=== PATIENT | female | born 1985 | race Caucasian/White ===

== ENCOUNTER 2022-04-13 18:09 | Emergency (ER) | payer OTHER, MEDICAID, SELFPAY ==
--- NOTE | 2022-04-13 18:14 | ED.FEMALEGU ---
HPI - Female Genitourinary General Chief complaint: Urogenital-Female Stated complaint: Urinary Problem Time Seen by Provider: 04/13/22 18:14 Source: patient and RN notes reviewed History of Present Illness HPI Narrative: Patient is a 36-year-old female who presents the urgent care with complaints of a possible UTI due to urinary frequency and left flank pain. Patient states that it started last night and she did have a fever. Patient has a history of kidney stones, urinary stones, UTIs and multiple bladder surgeries. Patient states that she has been taking Tylenol for the pain. Denies of any nausea or vomiting. Patient appears anxious and tearful. No other acute complaints. No acute distress noted. Patient aware of the plan of care. Some parts of this dictation were generated by voice recognition software and may contain typographical and/or grammatical inaccuracies. Related Data Home Medications Medication Instructions Recorded Confirmed albuterol sulfate 90 mcg/actuation 2 inh inhalation Q4H PRN Shortness 04/13/22 04/13/22 breath activated powder inhaler Of Breath omeprazole 40 mg capsule,delayed 40 mg PO DAILY 04/13/22 04/13/22 release sucralfate 1 gram tablet (Carafate) 1 g PO DAILY 04/13/22 04/13/22 Allergies Allergy/AdvReac Type Severity Reaction Status Date / Time No Known Allergies Allergy Unknown Unverified 03/19/19 15:26 Review of Systems Review of Systems: CONSTITUTIONAL: Denies fever, chills, or sweats. EYES: Denies visual changes, redness, or discharge. ENT: Denies rhinorrhea, congestion, sore throat, or otalgia. CARDIOVASCULAR: Denies chest pain, palpitations, or edema. RESPIRATORY: Denies cough or dyspnea. GASTROINTESTINAL: Denies abdominal pain, nausea, vomiting, or diarrhea. GENITOURINARY: Reports of urinary frequency and left flank pain SKIN: Denies rash or itching. MUSCULOSKELETAL: Denies back pain, joint pain, or myalgia. NEUROLOGIC: Denies headache, numbness, or weakness. All other systems reviewed are negative, except as documented in HPI. PMFSH Comments At the time of my signature, I reviewed and agree with the nursing past medical, surgical, social, and family history. There is no relevant family history pertinent to the patient complaint. Exam Narrative: GENERAL: This is a well-nourished, well-developed patient. Tearful HEAD: normocephalic, atraumatic. EYES: PERRL. Sclera clear/white. Vision is grossly intact. EARS: External ears normal NOSE: External nose normal with no obvious nasal discharge, nares without redness, no rhinorrhea. THROAT: Mucous membranes moist NECK: Neck supple CARDIOVASCULAR: Regular rate and rhythm without murmurs, gallops, or rubs. RESPIRATORY: Clear to auscultation. Breath sounds equal bilaterally. No wheezes, rales, or rhonchi. GASTROINTESTINAL: Abdomen soft, non-tender, nondistended. Bowel sounds are active. SKIN: warm, intact with no suspicious lesions or rash, good texture and turgor. NEURO: awake, alert, and oriented to person, place and time. There were no obvious focal neurologic abnormalities. BACK: Left CVA tenderness Course Course Level of Care: Express Care Visit Vital Signs Vital signs: Vital Signs Temperature 98.1 F 04/13/22 18:35 Pulse Rate 84 04/13/22 18:35 Respiratory Rate 20 04/13/22 18:35 Blood Pressure 146/86 H 04/13/22 18:35 Pulse Oximetry 100 04/13/22 18:35 Oxygen Delivery Room Air 04/13/22 18:35 Temperature 98.1 F 04/13/22 18:35 Pulse Rate 84 04/13/22 18:35 Respiratory Rate 20 04/13/22 18:35 Blood Pressure 146/86 H 04/13/22 18:35 Pulse Oximetry 100 04/13/22 18:35 Oxygen Delivery Room Air 04/13/22 18:35 Reviewed-patient is informed that they may have pre-hypertension or hypertension based on a blood pressure reading in the department. I recommend the patient call the primary care provider listed on their discharge instructions or a physician of their choice this week to arrange
[2022-04-13 18:35] VITALS: BP 146/86; PULSE 84; RESP 20; TEMP 36.7; O2SAT 100
== END 2022-04-13 18:55 | disposition home or self-care (01) ==
PROVIDERS: Emergency Provider Nurse Practitioner Family
DX: R10.9 Unspecified abdominal pain (principal)
CPT/HCPCS: 81003; 87086; 99203; G0463

== ENCOUNTER 2022-07-20 17:09 | Emergency (ER) | payer MEDICAID, SELFPAY ==
[2022-07-20 17:13] VITALS: BP 143/80; PULSE 74; RESP 15; TEMP 36.1; O2SAT 100
--- NOTE | 2022-07-20 17:32 | ED.DENTAL ---
HPI - Dental/Oral General Chief complaint: Dental/Oral Stated complaint: dental pain Time Seen by Provider: 07/20/22 17:21 History of Present Illness HPI Narrative: 37-year-old female presents to the emergency room for evaluation of left lower molar dental pain since last night. Patient states that she has noticed a bubble on her left lower gingiva that has been present for a week. Patient states she noticed a bubble break last night and has been experiencing pain ever since. Has been using topical lidocaine with no relief of symptoms. States has a dental appointment scheduled for next Wednesday. Related Data Home Medications Medication Instructions Recorded Confirmed albuterol sulfate 90 mcg/actuation 2 inh inhalation Q4H PRN Shortness 04/13/22 04/13/22 breath activated powder inhaler Of Breath omeprazole 40 mg capsule,delayed 40 mg PO DAILY 04/13/22 04/13/22 release sucralfate 1 gram tablet (Carafate) 1 g PO DAILY 04/13/22 04/13/22 Allergies Allergy/AdvReac Type Severity Reaction Status Date / Time No Known Allergies Allergy Unknown Unverified 03/19/19 15:26 Review of Systems Review of Systems: CONSTITUTIONAL: Denies fever, chills, or sweats. EYES: Denies visual changes, redness, or discharge. ENT: Reports dental pain CARDIOVASCULAR: Denies chest pain, palpitations, or edema. RESPIRATORY: Denies cough or dyspnea. GASTROINTESTINAL: Denies abdominal pain, nausea, vomiting, or diarrhea. GENITOURINARY: Denies dysuria or hematuria. SKIN: Denies rash or itching. MUSCULOSKELETAL: Denies back pain, joint pain, or myalgia. NEUROLOGIC: Denies headache, numbness, dizziness, or weakness. PSYCHIATRIC: Denies anxiety or depression. Exam Narrative: GENERAL: Well-appearing, well-nourished, no physical limitations, and in no acute distress. HEAD: Normocephalic, atraumatic. EYES: Conjunctivae normal, PERRLA and EOMI. ENT: Erythema and soft tissue swelling to the left buccal mucosa. No noticeable abscess. No dental pain. NECK: Supple. No meningeal signs. No adenopathy or masses. No carotid bruits or JVD CHEST: Clear to auscultation. No respiratory distress. No wheezes rales or rhonchi. No tenderness. HEART: Regular rate and rhythm. No murmur heard. Normal peripheral pulses. EXTREMITIES: Normal range of motion. No edema. No clubbing or cyanosis SKIN: Warm, dry, no rash. No noted wounds NEURO: No focal deficits. Alert and oriented x3. MAEW. CN's II-XI intact bilaterally, normal gait PSYCH: Cooperative. Normal mood and affect. Course Vital Signs Vital signs: Vital Signs Temperature 36.1 C L 07/20/22 17:13 Pulse Rate 74 07/20/22 17:13 Respiratory Rate 15 07/20/22 17:13 Blood Pressure 143/80 H 07/20/22 17:13 Pulse Oximetry 100 07/20/22 17:13 Oxygen Delivery Room Air 07/20/22 17:13 Temperature 36.1 C L 07/20/22 17:13 Pulse Rate 74 07/20/22 17:13 Respiratory Rate 15 07/20/22 17:13 Blood Pressure 143/80 H 07/20/22 17:13 Pulse Oximetry 100 07/20/22 17:13 Oxygen Delivery Room Air 07/20/22 17:13 Discharge Plan Discharge Clinical Impression: Toothache Patient Disposition: Home, Self-Care Condition: Stable Instructions: Antibiotic Form, Toothache (ED) Prescriptions: New amoxicillin-pot clavulanate 875-125 mg tablet 1 tablet PO Q12H Qty: 14 0RF tramadol 50 mg tablet 50 mg PO Q6H PRN (Reason: pain) Qty: 10 0RF No Action omeprazole 40 mg Capsule,Delayed Release(Dr/Ec) 40 mg PO DAILY sucralfate [Carafate] 1 gram Tablet 1 g PO DAILY albuterol sulfate 90 mcg/actuation Aerosol Powdr Breath Activated 2 inh INHALATION Q4H PRN (Reason: Shortness Of Breath) sulfamethoxazole-trimethoprim [Bactrim DS] 800-160 mg tablet 1 tablet PO Q12H Qty: 14 0RF ketorolac 10 mg tablet 10 mg PO Q6H PRN (Reason: pain) 5 Days Qty: 20 0RF Follow-up/Referrals: PHYSICIAN NOT ON STAFF,NONSTAFF [Primary Care Provider] - Stand Alone Forms:
== END 2022-07-20 18:04 | disposition home or self-care (01) ==
LOC: ANHED 17:51
PROVIDERS: Emergency Provider Nurse Practitioner Family; PCP Physician Assistant
DX: K08.89 Other specified disorders of teeth and supporting structures (principal)
CPT/HCPCS: 99283

== ENCOUNTER 2023-07-19 11:57 | Emergency (ER) | payer BC, SELFPAY ==
--- NOTE | ~2023-07-19 | CT_ITS ---
EXAMINATION: CT abdomen pelvis w con DATE: 07/19/2023 14:46 INDICATION: Flank pain, abdominal pain radiating to lower back. TECHNIQUE: Computed tomography (CT) of the abdomen and pelvis was performed with 100 CC Omnipaque 350 intravenous contrast. Automated exposure control and iterative reconstruction technique were employe d. Exam dose: 651.92 mGy-cm total exam DLP. COMPARISON: 02/27/2019 CT abdomen pelvis FINDINGS: There is minimal discoid atelectasis or scarring at the left lung base. No infiltrate or co nsolidation at the lung bases. Normal heart size. No pericardial or pleural effusion. The liver, gallbladder, bile ducts, pancreas, pancreatic duct, spleen and adrenal glands are unremark able. Approximately 2.5 mm upper pole nonobstructing right renal calculus. No other urinary tract calculus is evident. There is a prominent left extrarenal pelvis. 1 cm probable upper pole left renal cyst. There are surgical clips along the anterior aspect of the left psoas muscle. Normal appendix. There is diverticulosis of the colon; no CT evidence of diverticulitis is noted. No bowel obstruction, pneumatosis or intraperitoneal free air is detected. The uterus and adnexal areas are unremarkable. The urinary bladder is relatively evacuated. Normal caliber of the abdominal aorta. No intraperitoneal or retroperitoneal or pelvic mass lesion or adenopathy or ascites. Small fat-containing umbilical hernia. Hemangioma of L4 vertebral body. No suspicious osteolytic or osteoblastic lesions. Right L5 pars interarticularis defect. IMPRESSION: No urinary tract obstruction or hydronephrosis is evident. 2.5 mm nonobstructing upper pole right renal calculus 1 cm upper pole left renal cyst Normal appendix Diverticulosis of the colon; no evidence of diverticulitis L4 hemangioma Right L5 pars interarticularis defect Reviewed, dictated and finalized at [facility]. Reviewed, dictated and finalized at [facility]. EXAMINER
[2023-07-19 12:25] VITALS: BP 144/86; PULSE 79; RESP 16; TEMP 36.7; O2SAT 100
--- NOTE | 2023-07-19 13:30 | ED.GENADULT ---
HPI - General Adult General Chief complaint: Abdominal Pain <Lisa LeNita October, FIRE CAPTAIN - Last Filed: 07/19/23 13:35> Stated complaint: kidney stones <Lisa LeNita October, FIRE CAPTAIN - Last Filed: 07/19/23 13:35> Time Seen by Provider: 07/19/23 15:14 <Lisa LeNita October, FIRE CAPTAIN - Last Filed: 07/19/23 13:35> Focused HPI:Evita Mejia is a 38 y/o female who presents with reports significant hx of kidney stones needing nephrostomy tubes / stents placed two ureter repairs all on the left side- these procedures were done at [facility] - She presents today with reports of starting to get left flank pain yesterday and now pain has become much more sever to left flank radiating to left lower abdomen 10/10 + nausea /vomiting / + chills - no recorded feveres. GENERAL: Appears to be in pain/ well-nourished, and in no acute distress. HEAD: Normocephalic, atraumatic. CHEST: Clear to auscultation. ?No respiratory distress. HEART: Regular rate and rhythm.? NEURO: ?Alert and oriented x3. + L CVA tenderness/ lower abdominal pain Patient screened in triage and initial orders placed.? ?Additional care and disposition to be based upon?diagnostic testing and treatment. <Rajiv Peres MD - Last Filed: 07/19/23 19:07> History of Present Illness HPI narrative: Focused HPI:Evita Mejia is a 38 y/o female who presents with reports significant hx of kidney stones needing nephrostomy tubes / stents placed two ureter repairs all on the left side- these procedures were done at [facility] - She presents today with reports of starting to get left flank pain yesterday and now pain has become much more sever to left flank radiating to left lower abdomen 10/10 + nausea /vomiting / + chills - no recorded feveres. GENERAL: Appears to be in pain/ well-nourished, and in no acute distress. HEAD: Normocephalic, atraumatic. CHEST: Clear to auscultation. ?No respiratory distress. HEART: Regular rate and rhythm.? NEURO: ?Alert and oriented x3. + L CVA tenderness/ lower abdominal pain Patient screened in triage and initial orders placed.? ?Additional care and disposition to be based upon?diagnostic testing and treatment. <Lisa Manzano, FIRE CAPTAIN - Last Filed: 07/19/23 13:35> 38-year-old female presented emergency department for evaluation of left flank pain. Patient does have history of kidney stones and she felt this was similar pain. Patient denies any pain with urination. <Rajiv Peres MD - Last Filed: 07/19/23 19:07> Related Data Home medications: Home Medications Medication Instructions Recorded Confirmed albuterol sulfate 90 mcg/actuation 2 inh inhalation Q4H PRN Shortness 04/13/22 04/13/22 breath activated powder inhaler Of Breath omeprazole 40 mg capsule,delayed 40 mg PO DAILY 04/13/22 04/13/22 release sucralfate 1 gram tablet (Carafate) 1 g PO DAILY 04/13/22 04/13/22 <Lisa Manzano, FIRE CAPTAIN - Last Filed: 07/19/23 13:35> Allergies/adverse reactions: Allergies Allergy/AdvReac Type Severity Reaction Status Date / Time No Known Allergies Allergy Unknown Unverified 07/19/23 11:57 <Lisa Manzano, FIRE CAPTAIN - Last Filed: 07/19/23 13:35> Review of Systems Review of Systems: All systems reviewed & are unremarkable except as noted in HPI and below <Rajiv Peres MD - Last Filed: 07/19/23 19:07> Exam Narrative: APPEARANCE: Uncomfortable. HEAD: normocephalic, atraumatic. EYES: PERRLA/EOMI, conjunctivae clear. NOSE: Normal no drainage EARS:TMS clear with good light reflex. THROAT: Pharynx clear, no exudate. NECK: Supple. No adenopathy, no masses. RESPIRATORY: Airway patent, respirations nonlabored. Clear to auscultation bilaterally, no rales, rhonchi, wheezing. CARDIOVASCULAR: Regular rate and rhythm without murmurs rubs or gallops. ABDOMINAL: Left CVA tenderness to palpation MUSCULOSKELETAL: Moves all extremities. Strength/ROM intact, No edema, No calf tenderness. NEURO: Alert. Cranial nerves II through
[2023-07-19] MEDS: SODIUM CHLORIDE 0.9% IV 1,000 ML 999 ML IV CONT (14:07)
[2023-07-19] MEDS: ONDANSETRON INJ 4 MG/2 ML VIAL IV PUSH (14:08)
[2023-07-19] MEDS: KETOROLAC 30 MG/ML VIAL (*BKC) IV PUSH (14:08)
[2023-07-19 14:10] VITALS: BP 149/99; PULSE 64; RESP 18; TEMP 36.9; O2SAT 100
[2023-07-19 14:21] LABS: Hematocrit 42.9 % (37.0-47.0); Hemoglobin 13.8 g/dL (12.0-15.0); Mean Corpuscular HGB Conc 32.2 g/dl (32-36); Mean Corpuscular Hemoglobin 28.2 pg (26-34); Mean Corpuscular Volume 87.7 fl (80-100); Red Blood Count 4.89 M/mm3 (4.2-5.4); Red Cell Distribution Width 14.7 % (11.5-14.5); White Blood Count 12.7 K/mm3 (4.5-10.0)
[2023-07-19 14:22] LABS: Basophils Absolute Auto 0.1 K/mm3 (0.0-0.1); Basophils Percent Auto 0.7 % (0.2-1.2); Eosinophils Absolute Auto 0.5 K/mm3 (0-0.3); Eosinophils Percent Auto 3.7 % (0-4.4); Immature Granulocyte Absolute 0.04 K/mm3 (0.00-0.031); Immature Granulocyte Percent A 0.3 % (0-0.5); Lymphocytes Absolute Auto 3.28 K/mm3 (0.9-3.2); Lymphocytes Percent Auto 25.8 % (18.3-44.2); Mean Platelet Volume 9.8 fl (7.4-10.4); Monocytes Percent Auto 7.5 % (2.6-8.5); Neutrophils Absolute Auto 7.9 K/mm3 (1.3-6.7); Platelet Count Result 290 k/mm3 (150-375)
[2023-07-19 14:24] LABS: Appearance Urine Clear (Clear); Bilirubin Urine Negative (Negative); Blood Urine Negative (Negative); Color Urine Yellow (Yellow); Glucose Urine UA Negative (Negative); Ketones Urine Trace mg/dL (Negative); Leukocyte Esterase Ur Negative LEU/UL (Negative); Nitrate Urine Negative (Negative); Protein Urine Negative (Negative); Specific Grav Ur 1.025 (1.001-1.035); Urobilinogen Urine 0.2 mg/dL (<2.0)
[2023-07-19 14:28] LABS: Add Urine Microscopic? NO
[2023-07-19 14:32] LABS: Alanine Aminotransferase 25 U/L (6-35); Albumin Level 4.7 g/dL (3.5-5.1); Alkaline Phosphatase 79 U/L (38-126); Anion Gap 9 mmol/L (8-16); Aspartate Amino Transferase 28 U/L (14-36); Bilirubin,Total 0.6 mg/dL (0.2-1.3); Blood Urea Nitrogen 11 mg/dL (7-17); Calcium 9.2 mg/dL (8.4-10.2); Carbon Dioxide 27 mmol/L (22-30); Chloride 103 mmol/L (98-107); Estimated CRCL calculation 97 ml/min; Estimated Glomerular Filt Rate > 60; Glucose 87 mg/dL (65-110); Potassium 3.7 mmol/L (3.4-5.0); Sodium 139 mmol/L (137-145)
[2023-07-19] MEDS: HYDROmorphone HCL INJ (*CRX) 1 MG/ML SYR 0.5 MG IV PUSH (16:27)
[2023-07-19] MEDS: HYDROcodone/acetaminophen (*CRX) 5-325 MG TABLET 1 TAB PO (17:58)
== END 2023-07-19 18:02 | disposition home or self-care (01) ==
PROVIDERS: Nurse Practitioner Family; Emergency Provider Emergency Medicine; PCP Physician Assistant
DX: R10.32 Left lower quadrant pain (principal)
CPT/HCPCS: 36415; 74177; 80053; 81003; 81025; 85025; 96361; 96374; 96375; 99284; A9270; J1170; J1885; J2405; J7030; Q9967

== ENCOUNTER 2023-10-22 00:34 | Day surgery (SDC) | payer OTHER, SELFPAY ==
[2023-10-19 11:14] VITALS: BMI 31.8
--- NOTE | 2023-10-19 11:21 | PC.NURSE ---
Report to the Outpatient Waiting Room, entrance under the green pavilion located off [facility], at time _1130_ on date _[id number]_. Planned Procedure Time: _1330_. Time changes happen often and if your time is changed the preop area will call you the afternoon before. - You and your visitor will be asked to self-screen and do not enter if you have any COVID symptoms. - A mask is optional within the hospital at this time. Patients may have clear liquids (water, carbonated beverages, clear teas, apple juice) until 3 hours prior to surgery with a maximum of 20 ounces. - No food from midnight until time of surgery Take the following medications with a SIP of water the morning of surgery: ___Albuterol inhaler if needed. DO NOT STOP ANY OF YOUR OTHER PRESCRIPTION MEDICATIONS PRIOR TO SURGERY ?EXCEPT THE FOLLOWING Medications to discontinue per physician None Date to take last dose Please no make-up, nail german, hairspray, perfume, deodorant, or body powder the day of surgery. No jewelry (including any body piercings) or valuables the day of surgery, leave them at home. Please take a shower or bath the night before, or the morning of, surgery with an antibacterial soap. Wear comfortable, loose fitting clothing. - Jewelry must be removed prior to entering the operating room. Rings and piercings that are not removed may be cut off. - The hospital will not accept responsibility for valuables. - Please leave all valuables, including medications, at home the day of surgery. If you are going home after surgery, a licensed straddle bug driver must drive you home. - NO public transportation without another adult if you receive anesthesia. - We recommend that an adult stay with you for 24 hours following discharge. - We also recommend that you do not drive, make important decision, drink alcoholic beverages, or take any drugs that were not prescribed by your health care provider for at least 24 hours after your discharge time. Follow any additional instructions given to you from your surgeon. If you or anyone in your household have experienced Covid symptoms in the past week, please notify your surgeon or the nurse liaison at the phone number below for possible testing. Telephone instructions given to __Evita___and asked if any additional questions and then verbalized understanding. Patient advised to call surgeon office or pre surgery nurse liaison [phone] if any additional questions.
[2023-10-22] MEDS: ACETAMINOPHEN 500 MG TABLET 1000 MG PO (12:10)
[2023-10-22] MEDS: LACTATED RINGERS 1,000 ML 30 ML IV CONT (12:10)
--- NOTE | 2023-10-22 12:10 | P.PNAN_ITS ---
Anes - Initial Pre Proc Eval Procedure: Operation Date: 10/22/23 13:30 Proposed Procedures p Hysteroscopy Dilation and Curettage, Scarlet Endometrial Ablation - Albino Aponte MD Date/Time: 10/22/23 12:10 Surgeon: Albino Aponte MD Pre Op Diagnosis: Abnormal Uterine Bleeding Patient Data Age: 38 Gender: F Height: 1.63 m Weight: 84 kg Allergies Allergy/AdvReac Type Severity Reaction Status Date / Time No Known Allergies Allergy Unknown Unverified 10/19/23 11:13 Home Medications Medication Instructions Recorded Confirmed Type albuterol sulfate 90 mcg/actuation 2 inh inhalation Q4H PRN Shortness 04/13/22 10/19/23 History breath activated powder inhaler Of Breath omeprazole 40 mg capsule,delayed 40 mg PO DAILY 04/13/22 10/19/23 History release Patient hx anesthesia problems: none Family hx anesthesia problems: none Results Review: All pre-operative results and documents have been reviewed as part of the pre- operative evaluation. [facility] Past Medical History Medical History (Updated 10/22/23 @ 12:10 by Santiago Robertson MD) Asthma Obesity Social History Social History Years smoked: 5 Smoking status: Former smoker Tobacco type: cigarettes Smoking end date: 10/18/14 Living arrangements: with family Spiritual care concerns: No Anes - Eval Final PreProcedure Day of Procedure 10/22/23 12:10 Patient weight: obese Heart: regular rate and rhythm Lungs: clear to auscultation Airway: Mallampati scale class II Neurological: alert and oriented Last oral intake: >/= 8 hours ASA classification: II Emergent: no Anesthetic plan: proceed Anesthesia type and monitoring: general GIVS and standard monitoring Results Review: All pre-operative results and documents have been reviewed as part of the pre- operative evaluation. Informed Consent: The patient's anesthetic plan and its attendant risks and benefits were discussed with the patient/family/POA. Questions were solicited and answers provided to the satisfaction of the patient/family/POA.
[2023-10-22 12:11] VITALS: BP 117/86; PULSE 79; RESP 14; TEMP 36.7; O2SAT 97
--- NOTE | 2023-10-22 13:28 | P.HP_ITS ---
H&P: HPI History of Present Illness Date/Time: 10/22/23 13:28 Chief Complaint: abnormal uterine bleeding Narrative: Patient is a 38 year old female who presents for hysteroscopy with endometrial ablation indicated for abnormal uterine bleeding. She reports a long history of regular but heavy and painful periods. She has attempted multiple different medical management options without improvement. She underwent EMB which showed benign endometrium. We discussed r/b of expectant vs medical vs surgical management and she desires surgical management with endometrial ablation. Denies nausea, vomiting, dysuria, abdominal pain. Review of Systems Review of Systems: All systems reviewed & are unremarkable except as noted in HPI and below PMFSH Past Medical History Medical History Asthma Obesity Social History Social History Years smoked: 5 Smoking status: Former smoker Tobacco type: cigarettes Smoking end date: 10/18/14 Living arrangements: with family Spiritual care concerns: No Meds Home Medications and Allergies Home Medications Medication Instructions Recorded Confirmed Type albuterol sulfate 90 mcg/actuation 2 inh inhalation Q4H PRN Shortness 04/13/22 10/19/23 History breath activated powder inhaler Of Breath omeprazole 40 mg capsule,delayed 40 mg PO DAILY 04/13/22 10/19/23 History release Allergies Allergy/AdvReac Type Severity Reaction Status Date / Time No Known Allergies Allergy Unknown Verified 10/22/23 12:15 Vital Signs Vital Signs - 24 hr 10/22/23 12:11 Temperature 98.1 F Pulse Rate 79 Respiratory Rate 14 Blood Pressure 117/86 Pulse Oximetry 97 Oxygen Delivery Room Air Exam 2 Const: General: comfortable and no acute distress HENMT: Mouth: Yes moist mucous membranes Eyes: General: appearance normal, both eyes and all related structures Resp: Effort & Inspection: normal respiratory effort Cardio: Rate: regular rate Rhythm: regular rhythm Skin: General skin exam: normal color Extrem: General: normal to inspection Psych: Mental Status: mental status grossly normal Assessment and Plan Assessment and plan (1) Abnormal uterine bleeding: Code(s): N93.9 - Abnormal uterine and vaginal bleeding, unspecified Status: Acute Assessment and Plan: - unresponsive to medical management - EMB with benign endometrium - r/b of hysteroscopy and endometrial ablation discussed with patient, who desires to proceed with procedure
--- NOTE | 2023-10-22 13:31 | WPDHPUPDATE1 ---
History and Physical Update Update Date/Time: 10/22/23 13:31 History and Physical has been reviewed, including an updated exam of the patient. There are NO changes in the patient's condition. Risks, benefits, and alternatives have been discussed and questions answered. Patient agrees to proceed with procedure.
[2023-10-22] MEDS: KETOROLAC 30 MG/ML VIAL (*BKC) IV PUSH (14:05)
[2023-10-22] MEDS: LIDO 1%/EPINEPHRINE 1:100,000 50 ML VIAL 10 ML INFILTRATE (14:06)
--- NOTE | 2023-10-22 14:10 | W.PM.PROC2 ---
Procedure Note - Detailed Date of Procedure 10/22/23 Pre-op Diagnosis Abnormal Uterine Bleeding Post-op Diagnosis Same Procedure Performed hysteroscopy, endometrial ablation Surgeon Albino Aponte MD Anesthesia MAC Indications heavy uterine bleeding s/p failed medical management Findings Normal appearing uterine cavity prior to procedure, globally desiccated and pale endometrium following procedure Description of Procedure The patient was then taken to the operating room with IVFs running. She was placed in the dorsal supine position where she received MAC anesthesia without any difficulty.?? The patient was placed in the dorsal lithotomy position using april stirrups. She was then prepped and draped in a normal sterile fashion. A time-out procedure was performed and all members of the OR team agreed on the patient and plan. A bivalved speculum was then inserted into the patient's vagina.? The anterior lip of the cervix was grasped with a single tooth tenaculum. The cervical os was dilated using krystina dilators.? The uterus was sounded to 10.5 cm.? At this point, the? hysteroscope was then inserted into the uterine cavity. Saline was used as the distension medium. The above findings were noted. Both tubal ostia were visualized and pictures were taken.? The hysteroscope was then removed. The cervical length was then measured using the dilator and measured 4 cm.? The cervix was further dilated to accommodate the Scarlet device. The Scarlet device was then opened and the uterine cavity length set at 6.5 cm.? The device was deployed, the mesh examined, and then reinserted into the sheath.? The device was then inserted into the uterine cavity, deployed, and cavity width measurement obtained.? The cavity assessment was performed and was within normal limits.? The device was then activated.? Once the ablation was completed the device was removed and the hysteroscope reinserted.? The burn was noted to be equal and adequate.? The hysteroscope and tenaculum were removed.? The anterior lip of the cervix was hemostatic with silver nitrate sticks, and the bivalve speculum was then removed.? The patient tolerated the procedure well.? Sponge, lap, needle, and instrument counts were correct X3.? The patient was taken out of the dorsal lithotomy position and awakened from anesthesia and taken to the recovery room in stable condition. Estimated Blood Loss 10 Pathology None sent Complications No immediate complications Condition Stable Disposition Same day
[2023-10-22 14:15] VITALS: BP 107/60; PULSE 79; RESP 14; O2SAT 98
[2023-10-22 14:45] VITALS: BP 128/73; PULSE 70
[2023-10-22] MEDS: oxyCODONE HCL (*CRX) 5 MG TAB IR PO (14:54)
[2023-10-22 15:15] VITALS: BP 111/65; PULSE 67
== END 2023-10-22 15:25 | disposition home or self-care (01) ==
PROVIDERS: PCP Physician Assistant; Visit Provider Obstetrics & Gynecology
PROC: 0U5B8ZZ Destruction of Endometrium, Via Natural or Artificial Opening Endoscopic (ICD-10-PCS; CPT 58563; principal; 2023-10-22 13:30)
DX: N93.9 Abnormal uterine and vaginal bleeding, unspecified (principal); J45.909 Unspecified asthma, uncomplicated; Z79.51 Long term (current) use of inhaled steroids; Z87.891 Personal history of nicotine dependence; E66.9 Obesity, unspecified; Z68.32 Body mass index [BMI] 32.0-32.9, adult
CPT/HCPCS: 58563; A9270; J1885; J2250; J2704; J3010; J7120